=== PATIENT | male | born 1955 | race Caucasian/White ===

== ENCOUNTER 2023-12-21 10:38 | Emergency (ER) | payer MEDICARE, OTHER, SELFPAY ==
--- NOTE | ~2023-12-21 | XR_ITS ---
XR chest 2V DATE: 12/21/2023 11:43 INDICATION: Cough, wheezing TECHNIQUE: 2 views; lateral view is suboptimal due to unraised right upper extremity overlying the ch est COMPARISON: None FINDINGS: Left-sided dual-lead transvenous pacemaker device with leads overlying right atrium and rig ht ventricle. Normal heart size. There is aortic unfolding. No hilar or mediastinal enlargement is ev ident. Moderate elevation of the right leaf of the diaphragm. Is mild atelectasis at the lung bases. The sobeida gs otherwise appear clear. No pleural effusion or pneumothorax or pulmonary vascular congestion is detected. Status post reverse [id number] right glenohumeral joint replacement. IMPRESSION: Moderate elevation right diaphragm Mild atelectasis at the lung bases Left dual-lead pacemaker Reviewed, dictated and finalized at location L. INTER[facility]
[2023-12-21 10:52] VITALS: BP 93/60; PULSE 62; RESP 20; TEMP 37.1; O2SAT 94
--- NOTE | 2023-12-21 11:18 | ED.URI ---
HPI - URI/Sore Throat General Chief Complaint: Upper Respiratory Infection Stated Complaint: Cough/Fever/Weezing Time Seen by Provider: 12/21/23 11:19 Source: patient Mode of arrival: ambulatory Limitations: no limitations History of Present Illness HPI Narrative: 68-year-old male presented for complaint of cough and wheezing x2 days, with fever up to 101.8 last night. states he appears to be sob with exertion today. Using albuterol inhaler frequently. States his O2 sat yesterday was 85%, they went to ER and had normal oxygen. He did not stay for any testing. States this morning he felt worse. Pt had right shoulder replacement 12/19/23, ordered an incentive spirometer they will be receiving today. Denies increased fatigue, dizziness, cp, palpitations, n/v/d. Related Data Home Medications Medication Instructions Recorded Confirmed albuterol sulfate 90 mcg/actuation 2 puff inhalation Q6H PRN 12/21/23 12/21/23 aerosol inhaler Shortness Of Breath Or Wheezing docusate sodium 100 mg capsule 100 mg PO DAILY 12/21/23 12/21/23 gabapentin 300 mg capsule 300 mg PO TID 12/21/23 12/21/23 hydrocodone 5 mg-acetaminophen 325 1 tablet PO Q4H PRN Pain (Scale 12/21/23 12/21/23 mg tablet Score 7-10) ketorolac 10 mg tablet 10 mg PO Q6H PRN Pain (Scale Score 12/21/23 12/21/23 4-6) levothyroxine 50 mcg tablet 50 mcg PO DAILY 12/21/23 12/21/23 losartan 100 mg tablet 100 mg PO DAILY 12/21/23 12/21/23 meloxicam 15 mg tablet 15 mg PO DAILY 12/21/23 12/21/23 metoprolol succinate 50 mg 75 mg PO QHS 12/21/23 12/21/23 tablet,extended release 24 hr montelukast 10 mg tablet 10 mg PO DAILY 12/21/23 12/21/23 omeprazole 20 mg capsule,delayed 20 mg PO DAILY 12/21/23 12/21/23 release pravastatin 20 mg tablet 20 mg PO DAILY 12/21/23 12/21/23 tamsulosin 0.4 mg capsule 0.4 mg PO DAILY 12/21/23 12/21/23 tramadol 50 mg tablet 50 mg PO Q6H PRN Pain (Scale Score 12/21/23 12/21/23 4-6) Allergies Allergy/AdvReac Type Severity Reaction Status Date / Time No Known Allergies Allergy Verified 12/21/23 11:53 Review of Systems Review of Systems: CONSTITUTIONAL: Denies body aches, reports fever ENT: Denies rhinorrhea, congestion, sore throat, or otalgia. CARDIOVASCULAR: Denies chest pain, palpitations, or edema. RESPIRATORY: Reports cough, sob, wheezing. GASTROINTESTINAL: Denies abdominal pain, nausea, vomiting, or diarrhea. SKIN: Denies rash, itching, or wounds. MUSCULOSKELETAL: Denies back pain, joint pain, or myalgia. NEUROLOGIC: Denies headache, numbness, tingling, or weakness. All systems reviewed & are unremarkable except as noted in HPI and below PMFSH Past Medical History Medical History (Updated 12/21/23 @ 12:15 by Pratima Duke APRN) No pertinent past medical history Surgical History Surgical History (Updated 12/21/23 @ 12:15 by Pratima Duke APRN) History of right shoulder replacement Comments At time of signature, I have reviewed and agree with nursing past medical, surgical, social and family history unless otherwise noted. Please see nursing chart for further information. There is no relevant family history pertinent to the presenting complaint Exam Narrative: GENERAL: Well-appearing, in no acute distress. EYES: EOMI. No redness or drainage. Conjunctivae normal. ENT: Mucous membranes pink and moist. No rhinorrhea. TMs normal bilaterally. Throat normal. Uvula midline. NECK: Normal AROM. Supple. CHEST: No respiratory distress. Lungs diminished with Wheezing to bases; frequent moist wash driller cough. HEART: Regular rate and rhythm. No murmur appreciated. EXTREMITIES: Right arm in sling SKIN: Warm, dry, no rash. Capillary refill normal. Normal skin turgor. NEURO: Alert and oriented x3. Gait steady. PSYCH: Normal affect. Course Course Emergency Course: Patient is aware of diagnosis, understands and agrees to treatment plan. Anticipatory guidance given. Patient agrees to follow-up as direct
[2023-12-21 11:53] VITALS: BP 93/60
[2023-12-21 12:10] VITALS: BP 102/57; PULSE 60; O2SAT 94
== END 2023-12-21 12:10 | disposition home or self-care (01) ==
PROVIDERS: Emergency Provider Nurse Practitioner Family; PCP Internal Medicine
DX: J40 Bronchitis, not specified as acute or chronic (principal); Z20.822 Contact with and (suspected) exposure to COVID-19; Z96.611 Presence of right artificial shoulder joint; E78.00 Pure hypercholesterolemia, unspecified; I10 Essential (primary) hypertension; Z95.0 Presence of cardiac pacemaker; K21.9 Gastro-esophageal reflux disease without esophagitis; E03.9 Hypothyroidism, unspecified
CPT/HCPCS: 71046; 87426; 87804; 99213; G0463